=== PATIENT | male | born 1980 | race Caucasian/White ===

== ENCOUNTER 2024-02-16 20:44 | Observation (INO) | payer BC, SELFPAY ==
[2024-02-16 18:17] VITALS: BP 147/94; BMI 36.7
[2024-02-16 18:25] LABS: Glucose - Point of Care 177 mg/dl (70-99)
[2024-02-16 18:29] VITALS: BP 147/93
[2024-02-16 18:33] LABS: % Basophils 0.3 % (0-2); % Immature Granulocytes 0.8 % (0-0.5); % Lymphocytes 30.9 % (20.5-51.1); % Monocytes 9.5 % (1.7-9.3); % Neutrophils 55.5 % (42.2-75.2); Absolute Eosinophils 0.3 10^3/uL (0-0.7); Absolute Immature Granulocytes 0.1 10^3/uL (0-0.05); Absolute Lymphocytes 2.7 10^3/uL (1.2-3.4); Absolute Monocytes 0.8 10^3/uL (0.1-0.6); Absolute Neutrophils 4.8 10^3/uL (1.4-6.5); Hemoglobin 15.5 g/dL (13.0-18.0); Mean Corp Hgb Conc. 35.2 g/dL (33.0-37.0); Mean Corpuscular Hgb 28.2 pg (27.0-31.0); Mean Corpuscular Volume 80.1 fL (80.0-94.0); Mean Platelet Volume 9.8 fL (7.4-10.4); Nucleated Red Blood Cells % 0 % (-); Platelet Count 227 10^3/uL (130-400); Red Blood Cell Count 5.49 10^6/uL (4.70-6.10); Red Cell Dist. Width 12.8 % (11.5-14.5); White Blood Cell Count 8.6 10^3/uL (4.8-10.8)
--- NOTE | 2024-02-16 18:39 | ED.CVA ---
History of Present Illness
General
Chief Complaint: CVA/TIA Symptoms
Time Seen by Provider: 02/16/24 18:30
Onset of Stroke Symptoms
Onset of symptoms known: No
Time pt last seen normal is known: Yes
Date last time pt seen normal: 02/16/24
Travel History
Have you had any contact with someone who has COVID-19?: No
Do you have any symptoms of coronavirus? Fever > 100 degrees, chills, cough, shortness of breath, sore throat, loss of taste or smell, muscle aches, or headache?: No
History of Present Illness
History of Present Illness:
Patient presents to the emergency department with left upper extremity paresthesias. Symptoms started suddenly around 5 PM. There is no preceding injury or pain to the arm. Notes that it started in his hand and gradually worked its way up his
arm. Denies any facial or lower extremity symptoms. Shortly after the symptoms began he started feeling very lightheaded. Notes that he probably did not hydrate well enough today and was outside of baseball practice. Denies any difficulty with
speech. Denies any change in vision. Denies headache.
Past History
Past History
ED Past Medical History: Hypercholesterolemia and Other (Vasovagal syncope)
ED Past Surgical History: Other (Bilateral inguinal hernia repair as infant)
Social History
Tobacco: Non-smoker
Alcohol: None
Drug: None
Living: with family
Employment: Employed
Family History
Family History: Other (Noncontributory)
Phy Exam
Physical Exam
Physical Exam:
GENERAL APPEARANCE: NAD, well developed/ well nourished
EYES lids/conjunctiva normal
EARS/NOSE/THROAT Mucous membranes moist, uvula midline without oral pharyngeal erythema, exudate or swelling
HEAD/NECK normocephalic atraumatic, neck is supple.
RESPIRATORY respiratory effort normal, speaks in full sentences, no accessory muscle use. Lungs clear to auscultation without rhonchi, wheezes, rales
CARDIAC Regular rate and rhythm, no edema.
ABDOMINAL Soft, ND/NT. No pulsatile masses on exam, rebound tenderness, Leonard sign or pain over Mcburney's point.
MUSCLES/EXTREMITIES No abnormal range of motion, no swelling.
SKIN Warm, pink and dry. No rashes
NEUROLOGICAL Speech is clear and appropriate. Normal level of consciousness. 5/5 strength in all extremities. Mild alteration of sensation of the left upper extremity. He is able to feel light touch but states he feels slightly different. Normal
coordination. Cranial nerves II through XII intact
PSYCH Normal mood and affect. Judgement/competence is appropriate
Course
Orders/Labs/Results
Orders:
Orders
02/16/24 18:27
Complete Blood Count/With Diff Urgent
Comprehensive Metabolic Panel Urgent
02/16/24 18:30
CT Head W/o Cont STROKE ALERT Urgent
Comment:
Reason For Exam: parasthesias to LUE
NEUROLOGY CONSULT Urgent
Consulting Provider: Emily Iyer
Was physician already notified: Yes
0.9% Sodium Chloride 1000 ml [Nss] 1,000 ml IV BOLUS
02/16/24 18:39
Troponin I Urgent
02/16/24 18:52
Aspirin Chewable [Low Strength Aspirin] 324 mg PO NOW STA
Abnormal Lab Results
02/16/24 02/16/24
18:24 18:27
Abs Immat Gran (auto) 0.1 H 10^3/uL
(0-0.05)
Absolute Monos (auto) 0.8 H 10^3/uL
(0.1-0.6)
Immature Gran % 0.8 H %
(0-0.5)
Monocytes % 9.5 H %
(1.7-9.3)
Sodium 134 L mmol/L
(135-145)
BUN 29 H mg/dl
(9-20)
Glucose 174 H mg/dl
(70-99)
ALT 107 H U/L
(0-50)
POC Glucose 177 H mg/dl
(70-99)
02/16/24 18:27
02/16/24 18:27
Vital Signs
Initial and Last Documented VS:
Initial Vital Signs
Temp Pulse Resp BP Pulse Ox
98 F 74 16 147/94 99
02/16/24 18:17 02/16/24 18:17 02/16/24 18:17 02/16/24 18:17 02/16/24 18:17
Last Documented Vital Signs
Temp Pulse Resp BP Pulse Ox
98 F 82 15 147/93 99
02/16/24 18:17 02/16/24 18:45 02/16/24 18:45 02/16/24 18:29 02/16/24 18:17
*Critical Care Note
Total Time (30-74mins, 75-104mins- exclusive of procedures): Not Applicable
ED Attending Note
ED Attending Note
ED Attending Note:
Patient presents the emergency department with acute onset left upper extremity paresthesias. There is no motor weakness. NIH stroke scale is 1. Given low NIH stroke scale no TNK given. Stroke alert called. Dr. Sarah consulted. Recommending
CT head, aspirin, observation for MRI and rule out stroke.
-
Portions of this chart may have been created with voice recognition software.� Occasional wrong word or��sound alike� substitutions may have occurred due to the inherent limitations of voice recognition software.
Discharge Plan
Departure
Prescriptions:
No Action
No Current Medications
0
Referrals:
Harry Mcneil MD [Family Provider] -
Interventions
Interventions:
*Risk Screen - Suicide Last Done: 02/16/24 18:17
*General Assessment Last Done: 02/16/24 18:46
*Neglect/Abuse Screening Last Done: 02/16/24 18:17
ED- Fall Risk Assessment Last Done: 02/16/24 18:46
*ED COVID-19 Vaccine History Last Done: 02/16/24 18:46
ED- Cardiac Assessment Last Done: 02/16/24 18:30
ED- Neurological Assessment Last Done: 02/16/24 18:28
ED- Pulmonary Assessment Last Done: 02/16/24 18:30
ED Swallowing Screen Last Done: 02/16/24 19:06
Discharge Date and Time
Print Language: SERBIAN
[2024-02-16] MEDS: NSS 1000 IV (18:40)
[2024-02-16 19:00] VITALS: BP 136/115
[2024-02-16 19:06] LABS: ALT (SGPT) 107 U/L (0-50); AST (SGOT) 53 U/L (17-59); Albumin 4.7 g/dl (3.5-5.0); Alkaline Phosphatase 94 U/L (38-126); Blood Urea Nitrogen 29 mg/dl (9-20); Calcium 9.6 mg/dl (8.4-10.2); Carbon Dioxide 23 mmol/L (22-30); Chloride 102 mmol/L (98-107); Estimated Creatinine Clearance > 125 ml/min; Glucose 174 mg/dl (70-99); Potassium 4.5 mmol/L (3.5-5.1); Sodium 134 mmol/L (135-145); Total Bilirubin 0.6 mg/dl (0.2-1.3); Total Protein 7.8 g/dl (6.3-8.2); eGFR > 60.00
[2024-02-16] MEDS: LOW STRENGTH ASPIRIN 324 MG PO (19:07)
[2024-02-16 19:09] LABS: Troponin I < 0.012 ng/ml
[2024-02-16 20:00] VITALS: BP 145/81
--- NOTE | 2024-02-16 20:26 | HPS.HSE ---
Family Physician
-
Family Physician: Harry Mcneil
Chief Complaint
-
Paresthesias / Lightheadedness
History of Present Illness
Patient is a 43y M with no significant who presents to ED complaining of LUE paresthesias and lightheadedness this evening. Patient states that he was working at his computer until around 5Pm today. When he stood, he noted pins and needles
sensation in the dorsum of the hand and distal forearm. He had no hand weakness or ataxia. He had no LE symptoms. 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
just above the elbow.
He also began to note a sense of racing heartbeat / palpitations/ lightheadedness and anxiety.
Given these complaints, patient presented to the ED for further evaluation and treatment. Upon arrival, he also noted pins and needles in the L anterior loving. This resolved quickly.
His LUE paresthesias have also since resolved and patient now feels at baseline / has no complaints.
Patient denies any prior history of similar paresthesia symptoms.
He does note intermittent episodes of palpitations +/- lightheadedness over the past few months. Palpitations occur more frequently - but typically resolve very quickly.
Lightheaded episodes occur every few weeks.
He recently reported this to his PCP and was scheduled fro outpatient Holter monitoring.
Medical History
Past Medical History
Past Medical History: Reports Other
Additional Past Medical History:
Obesity
Past Surgical History: Reports Other
Additional Past Surgical History:
Bilateral Inguinal Herniorrhaphy
Social History
Tobacco: Former Smoker (Quit smoking 12 years ago. Approx 10 pack years total use.)
Alcohol: Occasional
Drug: None
Family History
Family History: Other (Mother: CORNER CUTTER Lymphoma, ILD, Thyroid disease Brother: Motor tics)
Allergies / Home Medications
Allergies reflects when Allergies were last updated in [facility].
Home Medications with original date entered in [facility]
Allergy/Medication List:
Allergies
Allergy/AdvReac Type Severity Reaction Status Date / Time
Penicillins Allergy Hives Verified 02/16/24 18:19
Home Medications
No Meds [No Current Medications] 02/16/24
Review of Systems
-
History Source: Patient
A 12 point ROS was completed and negative except as noted: Yes
Constitutional: Reports Fatigue; Denies Fever or Chills
EENT: Denies Sore Throat
Respiratory: Denies Cough or Trouble Breathing
Cardiac: Reports Palpitations and Syncope (Lightheaded / near syncope.); Denies Chest Pain or Diaphoresis
Abdomen/GI: Denies Abdominal Pain, Nausea, Vomiting or Diarrhea
: Denies Dysuria, Frequency or Flank Pain
Musculoskeletal: Denies Joint Pain or Edema
Neurological: Reports Numbness; Denies Dizzy, Headache or Weakness
Psych: Reports Anxiety; Denies Depression
Physical Exam
Vital Signs
Vital Signs
Temp Pulse Resp BP Pulse Ox
98 F 79 12 136/115 99
02/16/24 18:17 02/16/24 19:45 02/16/24 19:45 02/16/24 19:00 02/16/24 18:17
Physical Exam
General: Other (43y M in no acute distress.)
HEENT: Moist mucous membranes and Other (Thick neck.)
Respiratory: Clear; No Wheezes, Rales or Rhonchi
Cardiac: S1/S2 and Regular Rhythm; No Murmur
GI: Non Tender, Non Distended, Normal Bowel Sounds and Other (Obese)
Musculoskeletal: No Clubbing, No Cyanosis and No Edema
Neuro: AO x 3 and Nonfocal/grossly intact
Psych: No Anxious or Depressed
Laboratory Results
-
02/16/24 18:27
02/16/24 18:27
Laboratory Results
Total Bilirubin 0.6 mg/dl (0.2-1.3) 02/16/24 18:27
AST 53 U/L (17-59) 02/16/24 18:27
ALT 107 U/L (0-50) H 02/16/24 18:27
Alkaline Phosphatase 94 U/L (38-126) 02/16/24 18:27
Troponin I < 0.012 ng/ml 02/16/24 18:39
Impression/Plan
-
A/P: Patient is a 43y M with no significant PMH who presents to ED for evaluation of LUE paresthesias and lightheadedness / palpitations.
LUE Paresthesias
- Observe overnight for further evaluation and treatment.
- ? CORNER CUTTER event given brief LLE paresthesias as well.
- Follow for any new / recurrent symptoms.
- CT head negative in the ED. Check MR brain in the AM.
- Neurology consulted.
- ASA daily for now.
- Check A1C, fasting lipids, etc.
Palpitations / Near Syncope
- This has been intermittent for the past few months.
- Certainly need to rule out paroxysmal A-Fib or other arrhythmia given ? CVA / TIA symptoms as noted above.
- EKG is unremarkable. Monitor on tele overnight.
- Check Echo in the AM.
- Would proceed with outpatient cardiac monitoring as planned if no abnormality is appreciated during this stay.
- Cardiology evaluation if any abnormality is noted on tele or MRI that would suggest arrhythmia.
- Patient admits that he drinks coffee all day long every day - and this seems most likely etiology of his symptoms.
- Would encourage decrease or cessation of caffeine intake.
Obesity due to excess calories
- Affects all aspects of care.
- Check A1C as noted above.
- Encourage healthy diet and increased activity with goal of weight loss.
DVT Prophylaxis: Lovenox
Code Status: Full
--- NOTE | 2024-02-16 21:15 | PTCARENOTE ---
Pt admitted to room 2136 from ED at this time, aaox3, oriented to room and call light, no c/o pain or discomfort noted, occasionally with have sensation of pins and needles from LUE. Neurological checks q4 and NIH as ordered, no deficits noted.
[2024-02-16 21:18] VITALS: BP 137/87; BMI 37.2
[2024-02-16 23:34] VITALS: BP 141/83
[2024-02-17 02:56] VITALS: BP 130/78
[2024-02-17 06:56] LABS: Hematocrit 42.7 % (39.0-52.0); Hemoglobin 14.4 g/dL (13.0-18.0); Mean Corp Hgb Conc. 33.7 g/dL (33.0-37.0); Mean Corpuscular Hgb 27.7 pg (27.0-31.0); Mean Corpuscular Volume 82.1 fL (80.0-94.0); Mean Platelet Volume 9.8 fL (7.4-10.4); Platelet Count 190 10^3/uL (130-400); Red Cell Dist. Width 12.9 % (11.5-14.5); White Blood Cell Count 6.3 10^3/uL (4.8-10.8)
[2024-02-17 07:20] LABS: Blood Urea Nitrogen 21 mg/dl (9-20); Calcium 8.8 mg/dl (8.4-10.2); Carbon Dioxide 23 mmol/L (22-30); Chloride 107 mmol/L (98-107); Estimated Creatinine Clearance > 125 ml/min; Glucose 140 mg/dl (70-99); HDL Cholesterol 28 mg/dl; LDL Cholesterol, Calculated 125 mg/dl; Potassium 4.7 mmol/L (3.5-5.1); Sodium 135 mmol/L (135-145); Total Cholesterol 200 mg/dl (50-199); Triglyceride 236 mg/dl (10-149); Very Low Density Lipoprotein 47 mg/dl (0-30); eGFR > 60.00
[2024-02-17] MEDS: LOW STRENGTH ASPIRIN 81 MG PO (07:37)
[2024-02-17 07:45] VITALS: BP 123/73
--- NOTE | 2024-02-17 08:12 | CON.NEURO4 ---
Addendum entered and electronically signed by Chucky Walton MD 02/17/24 14:05:
I saw and evaluate the patient I reviewed the note by Margot Cee agree with the findings the following comments:
43-year-old left-handed man with new diagnosis of diabetes mellitus, obesity presented to hospital because of episode of several hours of left hand and forearm paresthesia, later on having some minor left leg paresthesias. Symptoms have resolved at
this point. He did not have any left facial paresthesia during these episodes. He does have a history of migraine without aura and a couple of my family members have migraines, no headache before during or after the symptoms. No pain in the hand
or forearm no recent head or neck injuries or head or neck trauma no history of any previous similar events.
Also has had some episodes of dizziness and lightheadedness and some palpitations.
Neurologic examination unremarkable
Good strength in all of the peripheral nerve distributions in the left hand no atrophy
Assessment: Most suspicious for probably the left arm being a peripheral mononeuropathy. Left leg paresthesia may or may not be relevant but would bring the possibility of TIA or minor stroke although he is quite young for this.
Recommendations
-Check MRI of the brain and MRA of the head and neck
-Cardiac telemetry
-Aspirin 81 mg daily for the time being
-Goal normotension
-Neurologic checks NIH stroke scale
Original Note:
Documented by User: Margot Lezama NP 02/17/24 14:00
Consultation - Neurology 4
-
CONSULTING PHYSICIAN: Emeka Walton MD
REFERRING PHYSICIAN: ER/Dr. Young
DICTATED BY: DAVID Hampton
DATE/TIME OF REQUEST: 02/16/24
DATE/TIME OF CONSULTATION: 02/17/24
Reason for Consultation: Paresthesias
History of Present Illness:
This is a 43-year-old left-handed male who has presented to the hospital on 02/16/24 with report of paresthesias, heart palpitations, and light-headedness. Patient reports that for the past few months he has felt fatigued, had an intermittent heart
racing sensation, and intermittent episodes of light-headedness while seated. He was evaluated by his PCP three days ago on 02/14/24 and given a script for an EKG and Holter monitor, which he hasn't completed yet. Yesterday (02/16/24), he reports
feeling in his usual state. At 1700 he was working at his desk when he stood up, and then suddenly noticed a pins and needles sensation in his dorsal left hand. He cannot recall if it involved all of his fingers too. The tingling sensation then
started to spread up his arm, stopping just above his left elbow. 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
to the ER for evaluation. On the car ride to the ER he reports developing tingling in his LLE but he cannot recall the exact location or duration but it was brief compared to the arm. CT head was obtained on arrival in the ER and is negative for any
acute abnormalities. NIHSS was a 1 for sensation change and he was not a candidate for TNK/IAT due to low NIHSS. He was loaded with aspirin in the ER. His LUE tingling was improved by the time he went to sleep last night but he noticed it while
using the bathroom during the night. This morning it has completely resolved but he still feels mildly light-headed. He denies any headache, vision changes, neck/back pain, speech/swallow difficultly, weakness, nausea, chest pain, and shortness of
breath. He endorses a history of vasovagal syncope associated with pain, and also migraine headaches. He started having migraines 3-4 years ago. He has about one per month. The headache is typically located over his right eye and is associated with
photophobia. He denies any aura, phonophobia, nausea, or vomiting with his headaches. He takes OTC Motrin or Tylenol only for headache relief. He denies any head/neck trauma. He had a recent flight to and from the , [place] the [place] last
week. He denies any events similar to this in the past and he was not taking any blood-thinning medications.
Past Medical History: migraines, obesity, heart palpitations, vasovagal syncope
Surgical History: b/l inguinal hernia repair as an infant, wisdom teeth extraction
Family History: Sister- migraines, spinal cord tumor. Mother- [employer] lymphoma, headaches. Maternal grandfather and grandmother- CVAs in elderly age.
Social History: Former smoker. Rare alcohol. Denies illicit drug use.
Allergies: Penicillins.
Home Medications: See below.
Review of Symptoms:
Patient denies any fever, headache, chest pain, shortness of breath, GI or symptoms.
�Per the HPI.�All systems are reviewed negative except above.
Physical Exam:
The patient is afebrile, abdomen is nondistended, breathing is unlabored, skin is warm and dry, no edema.
NIH Stroke Scale:
I performed the NIH stroke scale on the patient on 03/19/24 at 0930. The patient scored 0 points on the NIH stroke scale assessment, which were assigned as follows: See below.
Neurologic Examination:
The patient is awake, alert and oriented x 3. He is able to follow commands and answer questions appropriately. There is no aphasia or dysarthria. On cranial nerve assessment, pupils are 3 mm bilateral, round and reactive to light and
accommodation. Visual rosen are full. Extraocular movements are intact. Facial sensations are intact and bilaterally symmetrical, there is no facial asymmetry. Hearing is intact bilaterally to normal conversation volume. Tongue palate and uvula are
midline. Sternocleidomastoid strengths are full bilaterally. Motor strengths are 5/5 bilateral upper and lower extremities on medical research [place] scale. There is no drift or involuntary movement noted. Deep tendon reflexes are 2+ bilateral
upper and lower extremities and Babinski is absent bilaterally. Sensations of touch, temperature and vibration are intact and bilaterally symmetrical. There was no extinction noted on double simultaneous stimulation. Coordination is intact by finger
to nose bilaterally.
Lab Results: See below.
Neuro Imaging:
1. CT Head 02/16/24: No evidence of acute intracranial abnormality. ASPECTS score: 10.
2. Echo 02/17/24: ejection fraction is 50-55%, mildly dilated right atrium.
Differentials for the patient's presentation include:
1. Some concern for small ischemic infarct producing symptoms given arm and leg involvement
2. Unlikely to be a peripheral nerve issue given leg involvement.
3. Migraine aura possibly producing numbness but cannot assume this given no previous history of migraine aura.
4. New diagnosis NIDDM.
5. Frequent heart palpitations, some concern for Afib.
6. B12 level is 278.
Patient has the following risk factors for their symptoms: HLD, obesity, heart palpitations, NIDDM
IV Tenecteplase/IAT candidacy: He was not a candidate for TNK/IAT due to low NIHSS.
Recommendations:
-Continue aspirin 81mg daily for now.
-MRI brain noncontrast pending.
-Monitor on telemetry, patient will need outpatient cardiac monitoring.
-Goal normotension.
-Initiate cyanocobalamin 1000mcg PO daily.
-LDL goal will be <70 if MRI demonstrates a stroke, LDL is 125.
-Goal normoglycemia, hbA1c is 7.2. staff educator consult in place.
-NIHSS and neurological checks per unit protocol.
-Provide patient with a stroke education packet.
-PT/OT/ST evaluations.
-DVT prophylaxis.
-Will follow pending results.
Discussed patient care with: Dr. Walton, the patient
Vital Signs and Labs
-
Vital Signs and Labs:
Vital Signs
Temp Pulse Resp BP Pulse Ox
97.5 F 66 18 135/79 97
02/17/24 11:40 02/17/24 11:40 02/17/24 11:40 02/17/24 11:40 02/17/24 11:40
Lab Results
02/17/24 06:26
02/17/24 06:26
Sodium 135 mmol/L (135-145) 02/17/24 06:26
Potassium 4.7 mmol/L (3.5-5.1) 02/17/24 06:26
BUN 21 mg/dl (9-20) H 02/17/24 06:26
Glucose 140 mg/dl (70-99) H 02/17/24 06:26
Calcium 8.8 mg/dl (8.4-10.2) 02/17/24 06:26
LDL Cholesterol, Calc 125 mg/dl 02/17/24 06:26
Vitamin B12 278 pg/ml (239-931) 02/17/24 06:26
Medications
-
Active Medications
Generic Name Dose Route Start Last Admin
Trade Name Freq PRN Reason Stop Dose Admin
Acetaminophen 650 mg 02/16/24 21:10
Acetaminophen 325 Mg Tablet PO 03/15/24 21:09
Q4HPRN PRN
Mild Pain / Temp > 101
Aspirin 81 mg 02/17/24 08:00 02/17/24 07:37
Aspirin 81 Mg Chewable Tablet PO 03/16/24 07:59 81 mg
DAILY MELYSSA Administration
Dextrose 12.5 grams 02/17/24 10:55
Dextrose 50% (0.5 Grams/Ml) 50 Ml Syringe IV 03/16/24 10:54
[id number] PRN
hypoglycemia
Protocol
Enoxaparin Sodium 40 mg 02/17/24 18:00
Enoxaparin Sodium 40 Mg/0.4 Ml Syringe SC 03/16/24 17:59
QPM MELYSSA
Glucagon 1 mg 02/17/24 10:55
Glucagon 1 Mg Vial IM 03/16/24 10:54
PRN PRN
hypoglycemia
Protocol
Insulin Aspart 0 units 02/17/24 11:30 02/17/24 11:52
Insulin Aspart Low Resistance 300 Units/3 Ml Pen.Injctr SC 03/16/24 11:29 Not Given
AC MELYSSA
Protocol
Home Medications
�Medication �Instructions �Recorded
No Meds [No Current Medications] 02/16/24
NIH Stroke Score
Subsequent NIH Scale
Date of Subsequent NIH Scale: 02/17/24
Time of Subsequent NIH Scale: 09:30
NIH Stroke Score
Level of Consciousness: 0 - Alert
LOC Questions: 0-Answers both correctly
LOC Commands: 0-Performs both correctly
Best Horizontal Gaze: 0-Normal
Visual Rosen: 0=Normal, no visual loss
Facial Palsy: 0=Normal, symmetrical
Motor - Right Arm: 0=No drift 10 seconds
Motor - Left Arm: 0=No drift 10 seconds
Motor - Right Le-No drift 5 seconds
Motor - Left Le-No drift 5 seconds
Limb Ataxia: 0-Absent
Sensation: 0-Normal
Best Language: 0-No aphasia
Dysarthria: 0-Normal
Extinction and Inattention: 0-No abnormality
Total Score:: 0
Modified Taniya (mRS) Score
Modified Custer Scale (mRS): No symptoms
Score: 0

Documented by User: Chucky Walton MD 02/17/24 14:02
NIH Stroke Score
NIH Stroke Score
Total Score:: 0
Modified Custer (mRS) Score
Score: 0
[2024-02-17 10:25] LABS: Glycohemoglobin (HgbA1c) 7.2 % (4.0-5.6)
--- NOTE | 2024-02-17 10:51 | W.PN.HOSP.TC ---
Addendum entered and electronically signed by Simon Larios MD 02/17/24 16:33:
vitamin B12 deficiency
Start vitamin B12
Discussed with neurology. MRI negative for acute CVA. Does not appear to be TIA given onset from few months. DC aspirin. For diabetes we will discharge patient on metformin. Patient to follow-up with PCP outpatient. Discussed these findings
and recommendation with patient.
Time of discharge 38 minutes
Original Note:
Today's Communication/Plan
-
monitor vitals
see plan
check MRI
diabetes education consult
if symptoms better and MRI neg then likely dc later today
cw ASA
Assessment / Plan
Assessment / Plan
General: Other (43y M in no acute distress.)
HEENT: Moist mucous membranes and Other (Thick neck.)
Respiratory: Clear; No Wheezes, Rales or Rhonchi
Cardiac: S1/S2 and Regular Rhythm; No Murmur
GI: Non Tender, Non Distended, Normal Bowel Sounds and Other (Obese)
Musculoskeletal: No Edema
Neuro: AO x 3 and Nonfocal/grossly intact
Psych: No Anxious or Depressed
LUE Paresthesias
neurology was consulted in ED who rec MRI
MRI pending
- CT head negative in the ED. Check MR brain in the AM.
- Neurology consulted.
- ASA daily for now.
A1c 7.2; with new onset DM
patient aware of diagnosis. Diabetes education consult
will dc on metformin and have his PCP follow up
Palpitations / Near Syncope
- This has been intermittent for the past few months.
- Certainly need to rule out paroxysmal A-Fib or other arrhythmia given ? CVA / TIA symptoms as noted above.
- EKG is unremarkable. Monitor on tele overnight.
- Check Echo
- Would proceed with outpatient cardiac monitoring as planned if no abnormality is appreciated during this stay.
- Patient admits that he drinks coffee all day long every day - and this seems most likely etiology of his symptoms.
- Would encourage decrease or cessation of caffeine intake.
Obesity due to excess calories
- Affects all aspects of care.
- Encourage healthy diet and increased activity with goal of weight loss.
DVT Prophylaxis: Lovenox
Code Status: Full
Anticipated Discharge: Within 24 hours
Subjective/Interval History
-
Date of Service: February 17, 2024
denies headache
Objective Data
-
Labs:
Laboratory Results
02/17/24
06:26
WBC 6.3
Hgb 14.4
Hct 42.7
Plt Count 190
Sodium 135
Potassium 4.7
Chloride 107
Carbon Dioxide 23
BUN 21 H
Creatinine 0.6 L
Glucose 140 H
Calcium 8.8
Vital Signs:
Vital Signs
Temp Pulse Resp BP Pulse Ox
97.5 F 73 16 123/73 95
02/17/24 07:45 02/17/24 07:45 02/17/24 07:45 02/17/24 07:45 02/17/24 10:06
I&O
02/16/24 02/17/24 02/18/24
06:59 06:59 06:59
Intake Total 960 / 960
Balance 960 / 960
[2024-02-17 11:26] LABS: Folate 7.9 ng/ml (2.76-20); Vitamin B12 278 pg/ml (239-931)
[2024-02-17 11:38] VITALS: BP 134/78; BP 135/79; PULSE 66; O2SAT 99
[2024-02-17 11:38] LABS: Glucose - Point of Care 112 mg/dl (70-99)
[2024-02-17 11:40] VITALS: BP 135/79
--- NOTE | 2024-02-17 11:54 | PTOTSP ---
Patient is independent with functional mobility. No skilled PT needs at this time. Will D/C PT services.
--- NOTE | 2024-02-17 13:51 | CM ---
Addendum entered by Laura Valle 02/17/24 15:02:
Pt to return home with . (I) amb and ADLs per PT eval
Original Note:
CM met with patient and at bedside to review the Observation letter with them. Bradley signed the form which has been placed in the medical record.
Patient and had questions and were advised to call their insurance company directly to get the most accurate information about financial impact of observation level of care.
Plan for discharge to home with no needs identified.
PCP: Dr. Harry Mcneil
Pharmacy: [facility] [phone]
[2024-02-17] MEDS: VITAMIN B-12 1000 MCG PO (14:04)
--- NOTE | 2024-02-17 15:49 | PN.DE ---
Diabetes Education
- -
Diabetes Education: This is a 43 year old male admitted for Near syncope and LUE Paresthesias. Pt has New Diagnosis of T2DM with an A1C of 7.2%.
Attempted to see pt to provide instructions for glucose monitor use but was unsuccessful as pt was off the floor for MRI of brain.
Will try again tomorrow. Diabetes office contact information left with pt's Nurse for pt to call office and make appt in case he is discharged home tonight. Otherwise, we will f/u with pt in am for diabetes education.
[2024-02-17 16:15] VITALS: BP 143/86
[2024-02-17 16:30] VITALS: BP 143/86
--- NOTE | 2024-02-17 16:33 | W.DCSUMMARY ---
Discharge Summary
Discharge Data
Date of Admission: 02/16/24
Date of Discharge: 02/17/24
-
Pending Results: No
Hospital Course
43-year-old male with past medical history of obesity came to the hospital with paresthesias for few months. CT scan initially was negative for stroke. MRI was later done which was also negative for any CVA. Patient was seen by neurology
throughout hospitalization. It was thought that patient symptoms were likely secondary to neuropathy. Patient hemoglobin A1c came out to be 7.2 consistent with new onset diabetes mellitus. Patient was started on metformin prior to discharge.
Patient instructed to follow-up with primary care provider for further diabetes management. Upon labs his vitamin B12 was also low so he was started on vitamin B12. Once patient symptoms were improving he was then discharged home with instructions
to follow-up with all his physicians outpatient.
Discharge Plan
-
Patient Disposition: Home (Routine Discharge)
Discharge Diagnosis/Procedures: Paresthesia's
New onset diabetes mellitus
Vit b12 deficiency
Diet: As tolerated and Diabetic, Carb Controlled
Activity: No restrictions
Driving Restrictions: As prior to admission
Bathing Restrictions: None
Referrals:
Harry Mcneil MD [Family Provider] - in less than 1 week
Prescriptions:
New
cyanocobalamin (vitamin B-12) 1,000 mcg Tablet
1,000 mcg PO DAILY Qty: 30 0RF
metformin 500 mg tablet
500 mg PO BID Qty: 60 0RF
(DME) blood-glucose meter [Contour Next One Meter] Misc
Qty: 1 0RF
Rx Instructions:
As Directed
(DME) Contour Next Test Strips Strip
Qty: 200 0RF
Rx Instructions:
As Directed
Discharge Orders:
Discharge Patient (As Directed); Ordered 02/17/24
Ordered By: Simon Larios
Discharge Date and Time
Discharge Date/Time: 02/17/24 18:09
Print Language: SOU[place]UD[place]
[2024-02-17 16:35] LABS: Glucose - Point of Care 116 mg/dl (70-99)
--- NOTE | 2024-02-17 18:08 | PTCARENOTE ---
Patient discharged home, transported by spouse. This RN removed patient's IV and telemetry pack, reviewed discharge instructions and medications with patient who verbalized understanding. Diabetes education packet given to patient per diabetic RN TESTING
Armando. This RN discussed with patient importance of following up with either diabetic farm implement mechanic or primary care provider to establish plan regarding diabetes and education on glucometer/monitoring sugars; patient verbalized understanding, contact
information for diabetic farm implement mechanic provided, printout of patient's labs provided. Patient dressed and gathered belongings in room independently, refused wheelchair, ambulated down to main lobby with tech escort.
== END 2024-02-17 18:09 | disposition home or self-care (01) ==
LOC: 2 NORTH 20:44
PROVIDERS: ADMITTING PHYSICIAN Hospitalist; ATTENDING PHYSICIAN Internal Medicine; EMERGENCY PHYSICIAN Emergency Medicine; FAMILY PHYSICIAN Family Medicine; OTHER PHYSICIAN Student in an Organized Health Care Education/Training Program
DX: R20.2 Paresthesia of skin (principal); E11.40 Type 2 diabetes mellitus with diabetic neuropathy, unspecified; E78.00 Pure hypercholesterolemia, unspecified; R42 Dizziness and giddiness; R00.2 Palpitations; E66.09 Other obesity due to excess calories; R53.83 Other fatigue; R00.0 Tachycardia, unspecified; J34.1 Cyst and mucocele of nose and nasal sinus; I51.7 Cardiomegaly; E53.8 Deficiency of other specified B group vitamins; Z68.37 Body mass index [BMI] 37.0-37.9, adult; Z87.891 Personal history of nicotine dependence; Z88.0 Allergy status to penicillin
CPT/HCPCS: 70450; 70544; 70548; 70551; 80048; 80053; 80061; 82607; 82728; 82746; 82962; 83036; 84443; 84484; 85025; 85027; 93005; 93306; 96360; 97162; 97166; 99285; A9585; G0378; Q9950

== ENCOUNTER 2024-09-02 09:51 | Emergency (ER) | payer BC, SELFPAY ==
[2024-09-02 10:00] VITALS: BP 112/76; BMI 34.7
[2024-09-02 10:10] LABS: % Basophils 0.3 % (0-2); % Eosinophils 1.9 % (0-6); % Immature Granulocytes 0.6 % (0-0.5); % Neutrophils 63.2 % (42.2-75.2); Absolute Eosinophils 0.1 10^3/uL (0-0.7); Absolute Lymphocytes 1.6 10^3/uL (1.2-3.4); Absolute Monocytes 0.6 10^3/uL (0.1-0.6); Hematocrit 44.6 % (39.0-52.0); Hemoglobin 14.7 g/dL (13.0-18.0); Mean Corpuscular Hgb 27.8 pg (27.0-31.0); Mean Corpuscular Volume 84.3 fL (80.0-94.0); Nucleated Red Blood Cells % 0 % (-); Platelet Count 208 10^3/uL (130-400); Red Blood Cell Count 5.29 10^6/uL (4.70-6.10); Red Cell Dist. Width 12.8 % (11.5-14.5); White Blood Cell Count 6.3 10^3/uL (4.8-10.8)
[2024-09-02 10:24] LABS: ALT (SGPT) 53 U/L (0-50); AST (SGOT) 30 U/L (17-59); Albumin 4.4 g/dl (3.5-5.0); Alkaline Phosphatase 66 U/L (38-126); Blood Urea Nitrogen 22 mg/dl (9-20); Calcium 8.9 mg/dl (8.4-10.2); Carbon Dioxide 28 mmol/L (22-30); Chloride 102 mmol/L (98-107); Estimated Creatinine Clearance > 125 ml/min; Glucose 112 mg/dl (70-99); Magnesium 2.1 mg/dl (1.6-2.3); Potassium 4.8 mmol/L (3.5-5.1); Sodium 139 mmol/L (135-145); Total Bilirubin 0.5 mg/dl (0.2-1.3); Total Protein 6.8 g/dl (6.3-8.2); eGFR > 60.00
[2024-09-02 10:26] LABS: D-Dimer < 0.27 ug/mlFEU (0.00-0.50)
[2024-09-02 10:34] LABS: Troponin I < 0.012 ng/ml
[2024-09-02 10:55] LABS: TSH Reflex To Free T4 2.68 uIU/ml (0.47-4.68)
[2024-09-02 11:00] VITALS: BP 111/82
[2024-09-02 12:00] VITALS: BP 126/70
--- NOTE | 2024-09-02 12:31 | CON.CAR ---
Addendum entered and electronically signed by Rob Berrios MD 09/02/24 14:54:
44 yo male with PMH of DM and obesity presents to ED with lightheadedness and chest discomfort. He has been having intermittent lightheadedness without syncope, all week, including while in ED. He sometimes get chest/arm discomfort, but does not
necessarily correlate to activity. Exam with RRR, no murmurs, no edema. EKG and tele: NSR, no arrhythmia. TnI <0.012 x2. Echo 02/2024: EF 50-55%, no sig valve abnl.
Lightheadedness. Tele was normal during episodes here. Does not seem to be a rhythm issue.
Chest/arm discomfort: seems more MSK over angina. Normal TnI x2. Given risk factors, will arrange for outpatient ETT and office follow up.
We discussed starting statin as outpatient for dyslipidemia in setting of DM.
Original Note:
Consultation
Consultation Request
Date/Time Consultation Requested: 09/02/2024 1000
Date/Time Consultation Performed: 09/02/2024 1100
Requesting Provider: DR. Brady
Performing Provider: Dr. Berrios
Reason for Consultation: lightheadeness
Medical History
-
Chief Complaint: Lightheadedness
History of Present Illness:
44-year-old gentleman with history of diabetes which was originally diagnosed in February 2024 on metformin who complains of periods of lightheadedness which started on Wednesday. These episodes started while he was at home. He was not necessarily doing
any particular activity to provoke it. He does feel he needs to sit when it does happen. There is not a spinning quality associated with it. It has been progressive throughout the week. He went to urgent care on Wednesday and states EKG there
was stable. He saw his PCP yesterday and blood work was ordered. This morning he went for a walk and when he got home and sat he started to feel worse. The lightheadedness was more intense so he presented to the ER for evaluation.
-
He does not normally exercise outside of walking. 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
Past Medical History
Past Medical History: Other (DM, hyperlipidemia, possible vasovagal syncope)
Past Surgical History: Other (Bilateral inguinal hernia repair as a child, wisdom tooth extraction)
Social History
Tobacco: Former Smoker (Quit approximately 15 years ago)
Alcohol: Occasional
Personal:
Living: With Family
Family History
Family History: Reviewed & Not Pertinent
Allergies / Home Medications
Allergy/AdvReac Type Severity Reaction Status Date / Time
Penicillins Allergy Hives Verified 02/16/24 18:19
�Medication �Instructions �Recorded �Confirmed �Type
blood sugar diagnostic (Contour #200 ea 02/17/24 Rx
Next Test Strips)
blood-glucose meter (Contour Next #1 ea 02/17/24 Rx
One Meter)
cyanocobalamin (vitamin B-12) 1,000 mcg PO DAILY #30 tabs 02/17/24 Rx
1,000 mcg tablet
metformin 500 mg tablet 500 mg PO BID #60 tabs 02/17/24 Rx
Review of Systems
-
History Source: Patient
All other systems: Negative unless noted
Constitutional: No Symptoms
EENT: No Symptoms
Respiratory: No Symptoms and Other (Mild BOCANEGRA)
Cardiac: Other (Some chest discomfort or pressure which lasts less than 1 to 2 seconds)
Abdomen/GI: No Symptoms
Musculoskeletal: Other (Left arm numbness associated with lightheadedness)
Neurological: Other (Lightheadedness with rest or activity)
Physical Exam
Vital Signs
Temp Pulse Resp BP Pulse Ox
97.8 F 70 16 111/82 99
09/02/24 10:00 09/02/24 11:45 09/02/24 11:45 09/02/24 11:00 09/02/24 10:00
Lab Results
09/02/24 10:04
09/02/24 10:04
Troponin I < 0.012 ng/ml 09/02/24 10:04
Physical Exam
General: Well Developed and No Apparent Distress
HEENT: Normocephalic and Moist Mucous Membranes
Respiratory: Clear
Cardiac: S1/S2 and Regular Rhythm
Breast: N/A
GI: Soft, Non Distended and Normal Bowel Sounds
Musculoskeletal: No Edema
Skin: Warm and Dry
Neuro: AO x 3
Impression / Plan
-
Lightheadedness:
-He states this is similar to what he has experienced previously when he was admitted in February 2024.
-No acute EKG changes.
-Blood pressure is low normal. Check orthostatics
-Telemetry has been stable with normal sinus rhythm no evidence of arrhythmia
-Can consider outpatient cardiac event monitor.
Chest discomfort:
-He describes this as a less than a few seconds and can be on his sides or towards the middle of his chest. Some L arm numbness as well.
-Troponin is normal EKG normal
-Consider outpatient stress testing
Diabetes:
-On metformin following with PCP.
Hyperlipidemia:
-He pulled up his blood work from his PCP yesterday. TC 202, TG 162, HDL 27, LDL 145.
-PCP has recommended statin therapy however he wanted to be evaluated by cardiology prior to starting.
-Given diabetes LDL goal is at least less than 70% if not less than 55. Discussed should follow PCP recommendation for statin therapy
Data Reviewed
-
EKG: Tracing Personally Visualized and interpreted (EKG from todayNormal sinus rhythm at 63 bpm no acute changes)
Medical Tests (Nuc Med, Echo etc): Report Reviewed by me (Echocardiogram 02/17/2024 contrast used. EF 50-55 enlarged RV size normal RV systolic function no significant valvular disease) and Other (ETT 03/02/2013 1310.5 METS negative for ischemia)
Labs: Labs Reviewed by me, Discussed with Physician and Discussed with Patient
--- NOTE | 2024-09-02 13:52 | ED.GENMED ---
History of Present Illness
General
Chief Complaint: Dizziness
Source: patient
Exam Limitations: none
Time Seen by Provider: 09/02/24 09:55
Nursing documentation reviewed up to this point in time: agreed with
History of Present Illness
History of Present Illness:
44-year-old male with a past medical history of hyperlipidemia, diabetes who presents to the emergency room for evaluation of lightheadedness and chest discomfort. Patient reports that symptoms have been intermittent for the past 6 days. He has
not noticed any clear trigger�symptoms are not positional and they are not clearly exertional however today he did have an episode after exertion which prompted ER visit. He says he was walking up a hill and when he got to the top he felt very
lightheaded as if he might pass out and had some chest discomfort. He says it lasted 15 to 20 minutes roughly and has since completely resolved. He is asymptomatic in the ER. He does not get any associated nausea or diaphoresis. He has not had
any recent illness. Denies swelling in the legs. Denies any other complaints. He denies any known cardiac history; he says he saw under sheriff once years ago after syncopal event but has not seen anyone since. He does have a history of diabetes
that was diagnosed within the past year, has been on metformin.
Past History
Past History
ED Past Medical History: Hypercholesterolemia and Other (Vasovagal syncope)
ED Past Surgical History: Other (Bilateral inguinal hernia repair as infant)
Social History
Tobacco: Non-smoker
Alcohol: None
Drug: None
Living: with family
Employment: Employed
Family History
Family History: Other (Noncontributory)
Review of Systems
Review of Systems
All Other Systems: ROS reviewed and negative except as documented in HPI and ROS
Constitutional: Denies fever
Respiratory: Denies cough or trouble breathing
Cardiac: Reports chest pain; Denies diaphoresis or palpitations
ABD/GI: Denies abdominal pain, nausea or vomiting
Musculoskeletal: Denies edema
Neurological: Reports dizzy
Phy Exam
Physical Exam
Physical Exam:
General: Awake, alert, oriented x3; no acute distress
Head: Normocephalic, atraumatic
Eyes: Conjunctiva normal, pupils equal round and reactive to light bilaterally
Throat: Airway intact, handling secretions
Neck: Trachea midline
Lungs: Clear to auscultation bilaterally, no wheezing, rales, rhonchi
Heart: Regular rate and rhythm, no murmurs, gallops, or rubs
Abd: Soft, non distended, nontender
Neuro: No gross deficits
Extremities: No edema in extremities, equal pulses in all extremities
Scores
Heart Failure Risk
Heart Failure Risk Score: Not Applicable
Heart Score for Chest Pain Patients
STEMI patient?: Not applicable
Withdrawal Assessment of Alcohol
Withdrawal Assessment Completed?: Not applicable
Course
Orders/Labs/Results
Orders:
Orders
09/02/24 09:57
Electrocardiogram (*1) Urgent
Reason for Study: Vertigo / Dizzy
EKG- Treatment ONCE
CR Chest - 2 Views Urgent
Comment:
Reason For Exam: chest pain
09/02/24 10:04
Complete Blood Count/With Diff Urgent
Comprehensive Metabolic Panel Urgent
D-Dimer Urgent
Magnesium Urgent
TSH Reflex To Free T4 Urgent
Troponin I Urgent
09/02/24 10:31
CARDIOLOGY CONSULT Urgent
Consulting Provider: Rob Berrios
Was physician already notified: Yes
09/02/24 14:06
Troponin I Urgent
Abnormal Lab Results
09/02/24
10:04
Immature Gran % 0.6 H %
(0-0.5)
BUN 22 H mg/dl
(9-20)
Glucose 112 H mg/dl
(70-99)
ALT 53 H U/L
(0-50)
09/02/24 10:04
09/02/24 10:04
Vital Signs
Initial and Last Documented VS:
Initial Vital Signs
Temp Pulse Resp BP Pulse Ox
36.6 C 69 18 112/76 99
09/02/24 10:00 09/02/24 10:00 09/02/24 10:00 09/02/24 10:00 09/02/24 10:00
Last Documented Vital Signs
Temp Pulse Resp BP Pulse Ox
36.6 C 84 11 126/70 99
09/02/24 10:00 09/02/24 13:30 09/02/24 13:30 09/02/24 12:00 09/02/24 10:00
MDM/Problems Addressed
Differential Diagnosis Includes:
ACS/angina, dehydration, pneumothorax, pneumonia, PE
MDM/Problems Addressed:
44-year-old male with past medical history as noted presents for evaluation of intermittent lightheadedness associated chest discomfort for the past 6 days. Vitals normal here. EKG shows sinus rhythm with no acute ischemia. Will place an IV check
labs including a CBC and a CMP, trend troponins, check D-dimer. Will check chest x-ray. Case discussed with cardiology to evaluate after exertional episode today. Monitor closely reassess after the above.
Labs reviewed: CBC and CMP unremarkable. D-dimer negative. Troponin undetectable. Repeat pending. Chest x-ray no acute disease. Patient evaluated by cardiology, low suspicion for angina/cardiac chest discomfort. Follow-up outpatient for stress
testing and cardiac monitoring. Awaiting repeat troponin if he remains asymptomatic with stable vital signs plan for discharge with outpatient follow-up.
Repeat troponin negative, vitals have been stable, asymptomatic on reassessment. Stable for discharge with close outpatient follow-up. Patient comfortable with this plan. All questions answered.
Chronic conditions affecting care:
Hyperlipidemia, diabetes
*Radiology
Radiology exam reviewed: radiology read reviewed
*Pulse Oximetry
Patient hypoxic: no
*EKG
Interpreted by ED Provider?: Yes
Heart Rate: 63
Rate: normal
Rhythm: sinus
[place]: normal axis
Interval: normal interval
QRS Pattern: normal QRS
Ischemia: no ischemia
*Critical Care Note
Total Time (30-74mins, 75-104mins- exclusive of procedures): Not Applicable
Data Reviewed
Source: patient
Patient Management
Discussion with other providers: Timber Bucker (Discussed with cardiology)
ED Attending Note
-
Portions of this chart may have been created with voice recognition software.� Occasional wrong word or��sound alike� substitutions may have occurred due to the inherent limitations of voice recognition software.
Discharge Plan
Departure
Patient Disposition: Home (Routine Discharge)
Date of Disposition: 09/02/24
Time of Disposition: 14:36
Patient with high blood pressure during this ER visit?: No
Discharge Problem:
Lightheadedness, Chest pain
Instructions: Chest Pain CBC Follow Up
Prescriptions:
No Action
cyanocobalamin (vitamin B-12) 1,000 mcg Tablet
1,000 mcg PO DAILY Qty: 30 0RF
metformin 500 mg tablet
500 mg PO BID Qty: 60 0RF
(DME) blood-glucose meter [Contour Next One Meter] Misc
Qty: 1 0RF
Rx Instructions:
As Directed
(DME) Contour Next Test Strips Strip
Qty: 200 0RF
Rx Instructions:
As Directed
Referrals:
Rob Berrios MD [Active] - Call in 1-3 days for appt
Harry Mcneil MD [Family Provider] -
Activity Restrictions/Additional Instructions:
Thank you for visiting the Emergency Department at [facility].
1. Please schedule a follow up appointment as directed. Call first thing tomorrow morning to make an appointment.
2. If indicated, please take your medications as instructed and indicated on discharge paperwork.
3. If any of your symptoms do not improve, or persist, or become more severe within 6-12 hours, please return to the emergency department for further care.
4. Please return to the emergency department if you develop a headache, neck pain/stiffness, fever greater than 100.4F, chest pain, shortness of breath, persistent nausea, vomiting, slurred speech, difficulty walking, numbness/tingling, weakness,
signs of infection or any other symptoms that are worrisome to you.
Please call [phone] if you have any questions.
Interventions
Interventions:
*General Assessment Last Done: 09/02/24 10:00
*Neglect/Abuse Screening Last Done: 09/02/24 10:00
ED- Fall Risk Assessment Last Done: 09/02/24 10:00
*ED COVID-19 Vaccine History Last Done: 09/02/24 10:00
ED- Neurological Assessment Last Done: 09/02/24 10:00
ED- Cardiac Assessment Last Done: 09/02/24 10:00
Discharge Date and Time
Print Language: SWEDISH
[2024-09-02 14:05] VITALS: BP 108/74
[2024-09-02 14:34] LABS: Troponin I < 0.012 ng/ml
== END 2024-09-02 14:52 | disposition home or self-care (01) ==
LOC: EMR 09:51
PROVIDERS: CONSULT PHYSICIAN Internal Medicine; EMERGENCY PHYSICIAN Emergency Medicine; FAMILY PHYSICIAN Family Medicine
DX: R42 Dizziness and giddiness (principal); R07.89 Other chest pain; E78.00 Pure hypercholesterolemia, unspecified; E11.9 Type 2 diabetes mellitus without complications; Z87.891 Personal history of nicotine dependence
CPT/HCPCS: 99285; 71046; 80053; 83735; 84443; 84484; 85025; 85379; 93005

== ENCOUNTER → 2024-09-15 10:30 | Outpatient (REF) | payer BC, SELFPAY | LOC: RCS 10:30 | PROVIDERS: ATTENDING PHYSICIAN Internal Medicine; FAMILY PHYSICIAN Family Medicine | DX: R07.89 Other chest pain (principal) | CPT/HCPCS: 93017 ==